=== PATIENT | female | born 1965 | race Caucasian/White ===

== ENCOUNTER 2022-09-12 05:53 | Day surgery (SDC) | payer OTHER, SELFPAY ==
[2022-09-12] VITALS (9 sets, daily range): BP systolic 82–136; BP diastolic 34–85; PULSE 59–83; RESP 10–22; TEMP 35.9–36.3; O2SAT 92–98; BMI 36.2
[2022-09-12] MEDS: Lactated Ringers 1,000 ML 30 ML IV (06:46)
--- NOTE | 2022-09-12 06:55 | W.ANESPRE ---
General Info Date of Service Date Performed: 09/12/22 Height: 5 ft 5 in Weight: 98.8 kg Body Mass Index (BMI): 36.2 Surgical Procedure: Operation Date: 09/12/22 07:50 Proposed Procedure Side Surgeon p Endoscopic Iliotibial Band Release w/Trochanteric Buresectomy Bilateral Garret Mckay MD Meds Allergies and Home Medications Allergies Allergy/AdvReac Type Severity Reaction Status Date / Time Latex, Natural Rubber Allergy Verified 09/11/22 11:28 Home Medication Medication Instructions Recorded acetaminophen 500 mg tablet 500 mg PO Q6H PRN 05/21/22 cyclobenzaprine 5 mg tablet 5 mg PO TID PRN 05/21/22 metoprolol tartrate 50 mg tablet 50 mg PO HS 05/21/22 aspirin 81 mg tablet,delayed 81 mg PO DAILY Prevent blood clot 09/12/22 release 30 days #30 tabs naproxen 250 mg tablet 250 - 500 mg PO BID PRN #40 tabs 09/12/22 oxycodone 5 mg tablet 5 - 10 mg PO Q4H PRN moderate to 09/12/22 severe pain #18 tabs Current Visit Medications: Current Medications Generic Name Dose Route Start Last Admin Trade Name Freq PRN Reason Stop Dose Admin Cefazolin Sodium/Dextrose 2 gm in 50 mls @ 100 mls/hr 09/12/22 06:00 Ancef Duplex IVPB 09/26/22 23:59 PREOP TIFFANY Ringer's Solution 1,000 mls @ 30 mls/hr 09/12/22 06:00 09/12/22 06:46 IV 09/26/22 23:59 30 mls/hr INFUSION TIFFANY Administration IV Miscellaneous Supplies 1 each 09/12/22 06:00 Iv Access IV 09/26/22 23:59 DIRECTED TIFFANY Sodium Chloride 0 ml 09/12/22 06:00 Normal Saline 10 Ml Vial IJ 09/26/22 23:59 DIRECTED PRN Sodium Chloride 0 ml 09/12/22 06:00 Normal Saline Flush 10 Ml Syr IV 09/26/22 23:59 PRN PRN Sterile Water 0 ml 09/12/22 06:00 Water,Injection,Sterile 10 Ml Vial IJ 09/26/22 23:59 DIRECTED PRN PFSH Active Problems Active Problems: Problem Status Onset Code Iliotibial band syndrome of both sides M76.31, M76.32 Gluteal tendinitis of both buttocks M76.01, M76.02 Trochanteric bursitis of both hips M70.61, M70.62 Gastroesophageal reflux disease K21.9 Palpitations R00.2 Hyperlipidemia E78.5 Trochanteric bursitis of right hip M70.61 Bilateral primary osteoarthritis of hip M16.0 Trochanteric bursitis, left hip M70.62 Bilateral hip pain M25.551, M25.552 Bilateral thigh pain M79.651, M79.652 Other spondylosis with radiculopathy, lumbar region 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 stated palpitations were in 2020, stated she had it worked up results came back normal, and was told it was stress induced. Pt also reports PO headaches Surgical History Surgical History H/O repair of right rotator cuff H/O tubal ligation History of cholecystectomy History of removal of ovarian cyst S/P appendectomy Tobacco Smoking/Tobacco Use Status: Former Tobacco Use Alcohol Alcohol Intake: never Substance Use Substance use: Rarely Substance use type: marijuana Details: last use of marijuana edibles was around New 2022 Vital Signs and Lab Results Vital Signs Most Recent Vital Signs in EMR: Most Recent Vital Signs Temp Pulse Resp BP Pulse Ox 36.3 C L 61 18 136/85 98 09/12/22 06:06 09/12/22 06:06 09/12/22 06:06 09/12/22 06:06 09/12/22 06:06 Lab Results Blood Type / Crossmatch: No Data to Display Complete Blood Count: No Data to Display Complete Metabolic Panel: No Data to Display Liver Function Panel: No Data to Display Coagulation Panel: No Data to Display Cardiac Panel: No Data to Display Arterial Blood Gas: No Data to Display Venous Blood Gas: No Data to Display Pancreas Panel: No Data to Display Thyroid Panel: No Data to Display Infectious Disease: No Data to Display Blood Cultures: No Data to Display Toxicology Panel: No Data to Display Anesthesia Assessment and Plan Anesthesia History Personal History: No History of Anesthesia Complications Family History: No Family History of Anesthesia Complications Exercise Tolerance Exercise Tolerance: Metabolic Equivalents>4 Pertinent Negatives Pertinent Negatives: No Symptoms of GERD, No Major Cardiovascular Symptoms or Complaints, No Major Pulmonary Symptoms or Complaints and No History of CVA/TIA Cardiac & Pulmonary Exam Cardiac Exam: Normal S1/S2 Heart Sounds Pulmonary Exam: Clear Bilateral Breath Sounds Implantable Cardiac Device Does patient have a Pacemaker or an ICD?: No Airway Exam Known Difficult Airway: No Mallampati Class: 2 Mouth Opening: Normal (> 3cm) Thyromental Distance: Greater than 3 cm Neck Range of Motion: Full ROM Neck Circumference: Normal Teeth Condition: Normal Dentition ASA Classification ASA Score: ASA 2 Emergency Case?: No NPO Status NPO Status: NPO Clears >2 hours, Solids >8 hours Anesthesia Plan Resuscitation Status: Full Code Anesthesia Technique: General Anesthesia Airway Planned: Endotracheal Tube Monitors Used: Standard Monitors
--- NOTE | 2022-09-12 07:00 | DI.RAD_ITS ---
Exam(s) XR HIP LT IN OR EXAM: XR HIP LT IN OR CLINICAL HISTORY: trochanteric bursitis. TECHNIQUE: 2D and realtime digital imaging was performed. COMPARISON: No exams were available for comparison FINDINGS: Please see procedure note for details. Fluoro time: 6.8seconds RADIATION DOSE DELIVERED: braden Morris=0.9 mGy
--- NOTE | 2022-09-12 07:00 | DI.RAD_ITS ---
Exam(s) XR HIP RT IN OR EXAM: XR HIP RT IN OR CLINICAL HISTORY: trochanteric bursitis. TECHNIQUE: Fluoroscopy was provided for the referring physician . COMPARISON: No exams were available for comparison FINDINGS: Please see procedure note for details. Fluoro time: 3.9 seconds RADIATION DOSE DELIVERED: braden Morris=0.85 mGy
--- NOTE | 2022-09-12 07:04 | W.PM.DSUDISC ---
Date of service: 09/12/22 Time of Service: 11:00 Discharge Plan Disposition Patient Disposition: Home Discharge Details Attending Provider: Garret Mckay Primary Care Provider: Masha Jeff Home Meds and New Rx's Prescriptions: New naproxen 250 mg tablet 250 - 500 mg PO BID PRNQty: 40 0RF Rx Instructions: take with a meal aspirin 81 mg tablet,delayed release (DR/EC) 81 mg PO DAILY 30 Days Qty: 30 0RF oxycodone 5 mg tablet 5 - 10 mg PO Q4H MDD 30 mg PRN (Reason: moderate to severe pain) Qty: 18 0RF Continued acetaminophen 500 mg tablet 500 mg PO Q6H PRN cyclobenzaprine 5 mg tablet 5 mg PO TID PRN metoprolol tartrate 50 mg tablet 50 mg PO HS Discontinued ibuprofen 200 mg tablet 200 mg PO Q6H PRN Discharge Instructions Additional Instructions: Surgery: Bilateral hip endoscopy with iliotibial band release and trochanteric bursectomy Activity: Weightbearing as tolerated. May use crutches or walker as needed for a few days. Gradually advance to full range of motion and activity over the next few weeks. A physical therapy prescription will be provided separately in the office at follow up if needed. Prescriptions: Aspirin 81 mg take 1 daily to prevent a blood clot for 30 days Naproxen 250 mg take 1-2 every 12 hours with a meal as needed for moderate pain Oxycodone 5 mg take 1-2 every 4-6 hours as needed for severe pain You may use [id number] Tylenol (acetaminophen) as needed for mild pain. These pain medications may be taken all at once or in different combinations as needed. Also, recommend Colace (docusate) as a stool softener as surgery and pain medicine cause constipation. You may try [id number] diphenhydramine (Benadryl) 25-50 mg nightly as a sleep aid Dressings: Leave dressings in place for 3 days. May then remove and leave open to air or cover incisions with Band-Aids. Leave the sticky Steri-Strips in place until they fall off or remove them after you shower. May shower after 5 days. Follow-up: 10-[address] Mckay You may take off the leg compression stockings this evening at home. You may also leave them on a few days longer if you have a history of leg swelling or edema. Let us know right away if you develop any redness, drainage, fevers, chest pain, or trouble breathing. Do not drink alcohol or drive for at least 24 hours after anesthesia. Please call the office during business hours with any questions or concerns. Discharge Orders Discharge Orders: Discharge Order (Routine); Ordered 09/12/22 Ordered By: Garret Mckay DS: Diagnosis Discharge Diagnosis (1) Iliotibial band syndrome of both sides: Status: Acute (2) Gluteal tendinitis of both buttocks: Status: Acute (3) Trochanteric bursitis of both hips: Status: Acute
--- NOTE | 2022-09-12 07:06 | W.PM.OP ---
Date of service: 09/12/22 Time of Service: 07:30 Operative Note Operative Note DATE OF PROCEDURE: 09/12/22 PRE-OP DIAGNOSIS: Bilateral hip 1. Iliotibial band syndrome 2. Trochanteric bursitis POST-OP DIAGNOSIS: same PROCEDURE: Bilateral hip endoscopic 1. Iiliotibial band release, CPT# 75971 2. Trochanteric bursectomy, CPT# 27727 SURGEON: Garret Mckay PRESIDENT [facility]UCATIONAL INSTITUTION: [facility] ANESTHESIA TYPE: Local By Surgeon and General LMA/ETT Refer to Anesthesia Record Patient was transported to: PACU Patient's condition: stable Indications: Please see complete medical record for details. Findings: Left side- Thickened and taut iliotibial band. Abundant significantly inflamed trochanteric bursitis. Central gluteus medius moderate hypermobility without any bursal?side tearing or apparent thinning. Right side- Thickened iliotibial band. Abundant moderately inflamed trochanteric bursitis. Procedure Description: In the operating room, general anesthesia was induced. The patient was positioned supine on the [place] operating room table. All bony prominences were well-padded. Preoperative antibiotics were administered. The Left hip was prepped and draped in the usual sterile fashion. The correct patient, procedures, and sides of the procedure were all verified prior to incision. Starting on the Left side, 30 cc of 0.25% bupivacaine containing epinephrine was infiltrated about the subcutaneous tissues for the planned anterior lateral and distal anterolateral portals as well as deeply over the greater trochanter. A knife was used to incise the skin for the anterior lateral and distal anterolateral portals followed by blunt dissection subcutaneously. Under fluoroscopic guidance, a switching stick and arthroscope were inserted localizing the iliotibial band over the greater trochanter. Blunt dissection and the mechanical shaver were used to resect fat and overlying tissue about the center of the iliotibial band and carefully expose the anterior and posterior margins. Once there was adequate exposure of the IT band, the greater trochanter was again localized under fluoroscopic guidance with a spinal needle inserted through the skin down to bone. This central area was marked using the radiofrequency ablator. A [place] blade was brought in and used to create a 2 cm longitudinal incision in line with the IT band fibers as well as extending it in a cruciate fashion with 2 cm incisions anteriorly and posteriorly. The radiofrequency ablator was used to achieve hemostasis. The mechanical shaver was then used to debride the IT band released edges exposing the trochanteric bursa. The mechanical shaver was then used to excise the trochanteric bursa taking care to protect musculature about the margins of the greater trochanter as well as neurovascular structures especially posteriorly. There was excellent visualization of the vastus lateralis as well as gluteus medius confirming appropriate bursa excision. The hip was brought through range of motion including internal and external rotation and there was no impinging iliotibial band tissue or remaining pathologic bursa. The viewing and working portals were switched and appropriate IT band release, trochanteric bursa excision, and hemostasis confirmed. Although the central gluteal tendon had hypermobility, there was no david tearing or thinning. Tendon otherwise was healthy and intact. No takedown for repair of the deep side was indicated. Suction was used to remove fluid from the endoscopic space. The portals were closed using 3-0 Monocryl in a buried fashion. Steri-Strips were applied over the incisions followed by Xeroform, 4 x 4 gauze, an ABD pad, and secured with tape. Proceeding to the Right side, the Right hip was prepped and draped in the usual sterile fashion. 30 cc of 0.25% bupivacaine containing epinephrine was infiltrated about the subcutaneous tissues for the planned anterior lateral and distal anterolateral portals as well as deeply over the greater trochanter. A knife was used to incise the skin for the anterior lateral and distal anterolateral portals followed by blunt dissection subcutaneously. Under fluoroscopic guidance, a switching stick and arthroscope were inserted localizing the iliotibial band over the greater trochanter. Blunt dissection and the mechanical shaver were used to resect fat and overlying tissue about the center of the iliotibial band and carefully expose the anterior and posterior margins. Once there was adequate exposure of the IT band, the greater trochanter was again localized under fluoroscopic guidance with a spinal needle inserted through the skin down to bone. This central area was marked using the radiofrequency ablator. A [place] blade was brought in and used to create a 2 cm longitudinal incision in line with the IT band fibers as well as extending it in a cruciate fashion with 2 cm incisions anteriorly and posteriorly. The radiofrequency ablator was used to achieve hemostasis. The mechanical shaver was then used to debride the IT band released edges exposing the trochanteric bursa. The mechanical shaver was then used to excise the trochanteric bursa taking care to protect musculature about the margins of the greater trochanter as well as neurovascular structures especially posteriorly. There was excellent visualization of the vastus lateralis as well as gluteus medius confirming appropriate bursa excision. The hip was brought through range of motion including internal and external rotation and there was no impinging iliotibial band tissue or remaining pathologic bursa. The viewing and working portals were switched and appropriate IT band release, trochanteric bursa excision, and hemostasis confirmed. Suction was used to remove fluid from the endoscopic space. The portals were closed using 3-0 Monocryl in a buried fashion. Steri-Strips were applied over the incisions followed by Xeroform, 4 x 4 gauze, an ABD pad, and secured with tape. The patient awoke from anesthesia without complication and was transferred to the recovery room in a stable condition.
[2022-09-12] MEDS: ceFAZolin 2 GM/50 ML BAG IVPB (07:55)
[2022-09-12] MEDS: Bupivacaine 0.25% Pres-Free W/EPI 30 ML VIAL ×2 (09:16)
[2022-09-12] MEDS: EPINEPHrine 30 MG/30 ML VIAL (09:35)
[2022-09-12] MEDS: ePHEDrine 25 MG/5 ML Syringe IVP (09:54)
[2022-09-12] MEDS: HYDROmorphone 2 MG/ML SYR IVP ×3 (10:03→10:23)
--- NOTE | 2022-09-12 11:16 | W.ANESPOSTOP ---
Postoperative Evaluation Date, Time and Location Date Performed: 09/12/22 Time Performed: 10:18 Patient Location: PACU Vital Signs Most Recent Imported Vital Signs: Most Recent Vital Signs Temp Pulse Resp BP Pulse Ox 35.9 C L 62 16 102/61 92 09/12/22 10:39 09/12/22 10:39 09/12/22 10:39 09/12/22 10:39 09/12/22 10:39 Pain Score Most Recent Pain Score: Most Recent Pain Score Pain Level 5 09/12/22 10:39 Assessment Mental Status: Awake (Alert & Oriented to Patient Baseline) Airway and Respiratory Function: Patent airway with normal (patient baseline) respiratory exam Cardiovascular Function: Hemodynamically Stable Hydration Status: Adequately Hydrated Nausea & Vomiting: No Nausea or Vomiting Pain: Pain is tolerable per patient (Being treated by RECREATIONAL THERAPY AIDE) Peripheral Nerve Block: Patient did not receive a nerve block
[2022-09-12] MEDS: oxyCODONE 5 MG TAB PO (11:47)
== END 2022-09-12 12:25 | disposition home or self-care (01) ==
PROVIDERS: PCP Family Medicine; Visit Provider Student in an Organized Health Care Education/Training Program
PROC: (CPT 29863; principal; 2022-09-12 07:30)
DX: M76.31 Iliotibial band syndrome, right leg (principal); M76.32 Iliotibial band syndrome, left leg; M70.62 Trochanteric bursitis, left hip; M70.61 Trochanteric bursitis, right hip
CPT/HCPCS: 27062; 27305; 73501; J0131; J0690; J1170; J1885; J2250